=== PATIENT | female | born 1965 | race Caucasian/White ===

== ENCOUNTER 2021-04-23 12:49 | Emergency (ER) | payer BC ==
[~2021-04-23] VITALS: Ht 157.5 cm; Wt 46.7 kg
[2021-04-23] MEDS ORDERED: IPRATROPIUM NEB FS 0.5 MG/2.5 ML AMPUL.NEB ONE (13:53)
[2021-04-23] MEDS: IPRATROPIUM NEB FS 0.5 MG/2.5 ML AMPUL.NEB NEB ONE (14:08)
[2021-04-23] MEDS ORDERED: AMOX-430 PO ×2 (15:09→15:13)
[2021-04-23] MEDS ORDERED: PRED20TA PO ×2 (15:09→15:13)
[2021-04-23] MEDS ORDERED: AZIT250T13 PO ×2 (15:09→15:13)
[2021-04-23 15:24] VITALS: BP 112/67
== END 2021-04-23 15:24 | disposition home or self-care (01) ==
LOC: ER 12:50
DX: J45.901 Unspecified asthma with (acute) exacerbation (principal); J18.9 Pneumonia, unspecified organism; Z88.1 Allergy status to other antibiotic agents; Z60.2 Problems related to living alone
CPT/HCPCS: 71045-TC

== ENCOUNTER 2022-01-25 11:47 | Emergency (ER) | payer BC, OTHER ==
[~2022-01-25] VITALS: Ht 157.5 cm; Wt 49.9 kg
[~2022-01-25 11:47] MED LIST: AMOX-430 PO; AZIT250T13 PO; PRED20TA PO
--- NOTE | 2022-01-25 11:50 | NUR ---
PT BIBRA FOR SOB PT ON 4L NC SAT 98% A/O X4 PAST HX OF RSV WAS BEING TREATED WITH TAKE HOME O2 THERAPY. REPORTS AN ACUTE DROP IN O2 SAT AND DIFFICULTY COUGHING. BREATH SOUNDS ASSESSED L LUNG WHEEZING. O2 NEB ORDERED PT STABLE
[2022-01-25] MEDS ORDERED: ALBUTEROL FS 2.5 MG/3 ML VIAL.NEB NEB ONE (12:00)
[2022-01-25] MEDS ORDERED: IPRATROPIUM NEB FS 0.5 MG/2.5 ML AMPUL.NEB NEB ONE (12:00)
[2022-01-25] MEDS ORDERED: predniSONE 20 MG TABLET PO ONE (12:00)
--- NOTE | 2022-01-25 12:01 | NUR ---
called rt for breathing tx
[2022-01-25] MEDS ORDERED: predniSONE 20 MG TABLET ONE (12:08)
[2022-01-25] MEDS ORDERED: ALBUTEROL FS 2.5 MG/3 ML VIAL.NEB ONE (12:14)
[2022-01-25] MEDS ORDERED: IPRATROPIUM NEB FS 0.5 MG/2.5 ML AMPUL.NEB ONE (12:14)
[2022-01-25] MEDS ORDERED: PRED50TA PO (13:57)
[2022-01-25] MEDS ORDERED: ALBU8.5H8 INH (13:57)
--- NOTE | 2022-01-25 14:24 | NUR ---
IV removed. Catheter intact and site benign. Pressure and 4x4 applied to site. No bleeding noted.
--- NOTE | 2022-01-25 14:39 | NUR ---
Patient discharged to home in stable condition. Written and verbal after care instructions given. Patient verbalizes understanding of instruction.
[2022-01-25 14:48] VITALS: BP 130/78
== END 2022-01-25 14:48 | disposition home or self-care (01) ==
LOC: ER 11:49
DX: J45.901 Unspecified asthma with (acute) exacerbation (principal); Z60.2 Problems related to living alone; Z88.1 Allergy status to other antibiotic agents
CPT/HCPCS: 99285; 93005; 94799; 94640; J7512